=== PATIENT | male | born 1955 | race Caucasian/White ===

== ENCOUNTER 2025-01-05 07:25 | Day surgery (SDC) | payer MEDICARE, BC ==
[2025-01-05] MEDS ORDERED: Sodium Chloride 0.9% 10 ML Syringe IV ONE (07:26)
[2025-01-05] MEDS ORDERED: Midazolam 1 MG/ML 2 ML SDV IV ONE (07:26)
[2025-01-05] MEDS ORDERED: Dexamethasone 4 MG/ML SDV IV ONE (07:26)
[2025-01-05] MEDS: Moxifloxacin 0.5% Ophth Soln 3 ML Bottle EYELF ONE (07:54)
[2025-01-05] MEDS: Povidone-Iodine 5% Sterile Ophth Soln 30 ML Bottle EYELF ONE ×2 (07:55→08:51)
[2025-01-05] MEDS: Phenylephrine 10% Ophth Soln 5 ML Bot EYELF ONE (07:56)
[2025-01-05] MEDS: Timolol Maleate 0.5% Ophth Soln 5 ML Bottle EYELF ONE (07:59)
[2025-01-05] MEDS ORDERED: Ondansetron 4 MG/2 ML SDV IVPUSH PRN (08:00)
[2025-01-05] MEDS: Cataract Ophth Solution EYELF ONE (08:01)
[2025-01-05] MEDS: Apraclonidine 0.5% Ophth Soln 5 ML Bot EYELF ONE (08:52)
[2025-01-05] MEDS: Diclofenac Sodium 0.1% Ophth Soln 5 ML Bottle EYELF ONE (08:52)
[2025-01-05] MEDS: Dexamethasone/Neomycin/Polymyxin B Ophth Oint 3.5 GM Tube EYELF ONE (08:54)
[2025-01-05] MEDS ORDERED: Dexamethasone 4 MG/ML SDV ONE (10:35)
== END 2025-01-05 09:35 | disposition home or self-care (01) ==
LOC: DL.SDS 07:25
PROVIDERS: ATTEND Ophthalmology
DX: H25.813 Combined forms of age-related cataract, bilateral (principal); I10 Essential (primary) hypertension; E03.9 Hypothyroidism, unspecified; E78.00 Pure hypercholesterolemia, unspecified; F17.210 Nicotine dependence, cigarettes, uncomplicated; Z88.8 Allergy status to other drugs, medicaments and biological substances; Z88.0 Allergy status to penicillin; Z79.82 Long term (current) use of aspirin; Z79.899 Other long term (current) drug therapy
CPT/HCPCS: 66984; A9270; J2003; J3373; 00142; J1100; J2250; J3490; V2632

== ENCOUNTER 2025-01-19 07:38 | Day surgery (SDC) | payer MEDICARE, BC ==
[2025-01-19] MEDS ORDERED: Ondansetron 4 MG/2 ML SDV IVPUSH PRN (08:00)
[2025-01-19] MEDS: Povidone-Iodine 5% Sterile Ophth Soln 30 ML Bottle EYERT ONE ×2 (08:06→08:49)
[2025-01-19] MEDS: Moxifloxacin 0.5% Ophth Soln 3 ML Bottle EYERT ONE (08:08)
[2025-01-19] MEDS: Timolol Maleate 0.5% Ophth Soln 5 ML Bottle EYERT ONE (08:09)
[2025-01-19] MEDS: Phenylephrine 10% Ophth Soln 5 ML Bot EYERT ONE (08:09)
[2025-01-19] MEDS: Cataract Ophth Solution EYERT ONE (08:10)
[2025-01-19] MEDS: Apraclonidine 0.5% Ophth Soln 5 ML Bot EYERT ONE (08:57)
[2025-01-19] MEDS: Dexamethasone/Neomycin/Polymyxin B Ophth Oint 3.5 GM Tube EYERT ONE (08:57)
[2025-01-19] MEDS: Diclofenac Sodium 0.1% Ophth Soln 5 ML Bottle EYERT ONE (08:57)
[2025-01-19] MEDS: Balanced Salt Solution Ophth Irrig 15 ML Bottle EYERT ONE (09:01)
== END 2025-01-19 09:50 | disposition home or self-care (01) ==
LOC: DL.SDS 07:38
PROVIDERS: ATTEND Ophthalmology
DX: H25.811 Combined forms of age-related cataract, right eye (principal); E78.00 Pure hypercholesterolemia, unspecified; I10 Essential (primary) hypertension; E03.9 Hypothyroidism, unspecified; F17.210 Nicotine dependence, cigarettes, uncomplicated; Z88.0 Allergy status to penicillin; Z88.7 Allergy status to serum and vaccine; Z79.82 Long term (current) use of aspirin; Z79.890 Hormone replacement therapy; Z79.899 Other long term (current) drug therapy
CPT/HCPCS: 66982; A9270; J2003; J3373; J3490